=== PATIENT | female | born 1960 ===

== ENCOUNTER 2018-05-02 05:09 | Outpatient (RCR) | payer OTHER ==
[~2018-05-02] VITALS: Ht 149.9 cm; Wt 35.4 kg
[2018-05-02] MEDS ORDERED: Methohexital Sodium 500mg Vial IVP ONE (05:10)
[2018-05-02] MEDS ORDERED: NS 500ML ONE (05:10)
[2018-05-02] MEDS ORDERED: Succinylcholine 20mg/ml 10ml vial ONE (05:10)
[2018-05-02 08:40] VITALS: BP 92/50
[2018-05-02 08:55] VITALS: BP 111/37
[2018-05-02 09:00] VITALS: BP 93/37
[2018-05-02 09:05] VITALS: BP 93/37
[2018-05-02 09:10] VITALS: BP 89/48
[2018-05-02 11:46] VITALS: BP 92/50
[2018-05-05] VITALS (12 sets, daily range): BP systolic 73–106; BP diastolic 13–83
[2018-05-05] MEDS ORDERED: NS 500ML ONE (06:00)
[2018-05-05] MEDS ORDERED: Succinylcholine 20mg/ml 10ml vial ONE (06:00)
[2018-05-05] MEDS ORDERED: Midazolam 2mg/2ml Inj ONE (06:00)
[2018-05-05] MEDS ORDERED: Methohexital Sodium Syr 100mg/10ml IVP ONE (06:00)
[2018-05-05] MEDS ORDERED: ePHEDrine 50mg/ml Inj ONE (06:00)
[2018-05-07] MEDS ORDERED: Succinylcholine 20mg/ml 10ml vial ONE (07:00)
[2018-05-07] MEDS ORDERED: Methohexital Sodium Syr 100mg/10ml IVP ONE (07:00)
[2018-05-07] MEDS ORDERED: Midazolam 2mg/2ml Inj ONE (07:00)
[2018-05-07] MEDS ORDERED: NS 500ML ONE (07:00)
[2018-05-07 09:13] VITALS: BP 94/50
[2018-05-07 09:25] VITALS: BP 107/41
[2018-05-07 09:30] VITALS: BP 107/46
[2018-05-07 09:35] VITALS: BP 85/49
[2018-05-07 09:40] VITALS: BP 98/41
[2018-05-09] MEDS ORDERED: NS 500ML ONE (07:00)
[2018-05-09] MEDS ORDERED: Methohexital Sodium Syr 100mg/10ml IVP ONE (07:00)
[2018-05-09] MEDS ORDERED: Midazolam 2mg/2ml Inj ONE (07:00)
[2018-05-09] MEDS ORDERED: Succinylcholine 20mg/ml 10ml vial ONE (07:00)
[2018-05-09 09:20] VITALS: BP 96/44
[2018-05-09] MEDS ORDERED: Atropine Sulfate 0.4mg/ml inj IVP PRN (09:37)
[2018-05-09 09:40] VITALS: BP 102/59
[2018-05-09 09:45] VITALS: BP 102/59
[2018-05-09 09:50] VITALS: BP 103/39
[2018-05-09 09:55] VITALS: BP 110/46
== END 2018-05-11 | disposition home or self-care (01) ==
LOC: ECT 05:09
DX: F33.3 Major depressive disorder, recurrent, severe with psychotic symptoms (principal); Z85.3 Personal history of malignant neoplasm of breast; E04.1 Nontoxic single thyroid nodule; E02 Subclinical iodine-deficiency hypothyroidism; E78.5 Hyperlipidemia, unspecified
CPT/HCPCS: 90870; J0330; J2250; J3490; J7040

== ENCOUNTER 2018-05-12 06:15 | Outpatient (RCR) | payer OTHER ==
[~2018-05-12] VITALS: Ht 149.9 cm; Wt 35.4 kg
[2018-05-12] MEDS ORDERED: NS 500ML ONE (06:16)
[2018-05-12] MEDS ORDERED: Methohexital Sodium Syr 100mg/10ml IVP ONE (06:16)
[2018-05-12] MEDS ORDERED: Succinylcholine 20mg/ml 10ml vial ONE (06:16)
[2018-05-12 09:02] VITALS: BP 98/50
[2018-05-12 09:20] VITALS: BP 100/44
[2018-05-12 09:25] VITALS: BP 86/39
[2018-05-12 09:30] VITALS: BP 94/36
[2018-05-12 09:35] VITALS: BP 94/44
[2018-05-14] MEDS ORDERED: Methohexital Sodium Syr 100mg/10ml IVP ONE (08:00)
[2018-05-14] MEDS ORDERED: Succinylcholine 20mg/ml 10ml vial ONE (08:00)
[2018-05-14] MEDS ORDERED: NS 500ML ONE (08:00)
[2018-05-14 08:54] VITALS: BP 97/49
[2018-05-14 09:10] VITALS: BP 124/102
[2018-05-14 09:15] VITALS: BP 125/87
[2018-05-14 09:20] VITALS: BP 92/33
[2018-05-14 09:25] VITALS: BP 93/51
[2018-05-16] MEDS ORDERED: Methohexital Sodium Syr 100mg/10ml IVP ONE (08:00)
[2018-05-16] MEDS ORDERED: NS 500ML ONE (08:00)
[2018-05-16] MEDS ORDERED: Succinylcholine 20mg/ml 10ml vial ONE (08:00)
[2018-05-16 09:19] VITALS: BP 83/48
[2018-05-16 09:32] VITALS: BP 100/41
[2018-05-16 09:37] VITALS: BP 138/89
[2018-05-16 09:42] VITALS: BP 98/25
[2018-05-16 09:47] VITALS: BP 83/43
[2018-05-21] MEDS ORDERED: NS 500ML ONE (08:00)
[2018-05-21] MEDS ORDERED: Succinylcholine 20mg/ml 10ml vial ONE (08:00)
[2018-05-21] MEDS ORDERED: Methohexital Sodium Syr 100mg/10ml IVP ONE (08:00)
[2018-05-21 08:45] VITALS: BP 91/45
[2018-05-21 09:00] VITALS: BP 124/68
[2018-05-21 09:05] VITALS: BP 110/24
[2018-05-21 09:10] VITALS: BP 110/24
[2018-05-21 09:15] VITALS: BP 92/45
[2018-06-02] MEDS ORDERED: Methohexital Sodium Syr 100mg/10ml IVP ONE (07:00)
[2018-06-02] MEDS ORDERED: NS 500ML ONE (07:00)
[2018-06-02] MEDS ORDERED: Succinylcholine 20mg/ml 10ml vial ONE (07:00)
[2018-06-02 07:55] VITALS: BP 98/56
[2018-06-02 08:05] VITALS: BP 91/35
[2018-06-02 08:10] VITALS: BP 97/52
[2018-06-02 08:15] VITALS: BP 110/52
[2018-06-02 08:20] VITALS: BP 109/60
== END 2018-06-10 | disposition home or self-care (01) ==
LOC: ECT 06:15
DX: F33.3 Major depressive disorder, recurrent, severe with psychotic symptoms (principal)
CPT/HCPCS: 90870; J0330; J7040

== ENCOUNTER 2018-06-16 08:21 | Outpatient (RCR) | payer OTHER ==
[~2018-06-16] VITALS: Ht 30.5 cm; Wt 0.5 kg
[2018-06-16 08:09] VITALS: BP 98/48
[2018-06-16] MEDS ORDERED: Succinylcholine 20mg/ml 10ml vial ONE ×2 (08:22)
[2018-06-16] MEDS ORDERED: Methohexital Sodium Syr 100mg/10ml IVP ONE ×2 (08:22)
[2018-06-16] MEDS ORDERED: NS 500ML ONE ×2 (08:22)
[2018-06-16 08:25] VITALS: BP 128/69
[2018-06-16 08:30] VITALS: BP 112/36
[2018-06-16 08:35] VITALS: BP 111/29
[2018-06-16 08:40] VITALS: BP 105/45
[2018-07-04 07:47] VITALS: BP 106/54
[2018-07-04 08:00] VITALS: BP 120/64
[2018-07-04 08:05] VITALS: BP 105/40
[2018-07-04 08:10] VITALS: BP 113/47
[2018-07-04 08:15] VITALS: BP 116/63
== END 2018-07-11 | disposition home or self-care (01) ==
LOC: ECT 08:21
DX: F33.3 Major depressive disorder, recurrent, severe with psychotic symptoms (principal)
CPT/HCPCS: 90870; J0330; J7040

== ENCOUNTER 2018-07-25 07:21 | Outpatient (RCR) | payer OTHER | END 2018-08-10 | disposition home or self-care (01) | LOC: ECT 07:21 | DX: F33.3 Major depressive disorder, recurrent, severe with psychotic symptoms (principal); Z53.9 Procedure and treatment not carried out, unspecified reason ==